=== PATIENT | male | born 1990 | race Caucasian/White ===

== ENCOUNTER 2021-06-24 12:07 | Emergency (ER) | payer BC, SELFPAY | END 2021-06-24 12:25 | disposition home or self-care (01) | LOC: BURERS 12:07 | DX: S40.022A Contusion of left upper arm, initial encounter (principal); F17.210 Nicotine dependence, cigarettes, uncomplicated; Y04.0XXA Assault by unarmed brawl or fight, initial encounter; Z89.511 Acquired absence of right leg below knee; Z89.432 Acquired absence of left foot | CPT/HCPCS: 99283 ==